=== PATIENT | female | born 1990 | race American Indian/Alaskan Native ===

== ENCOUNTER 2016-05-01 04:13 | Emergency (ER) | payer OTHER ==
[2016-05-01 04:26] VITALS: BP 124/87
[2016-05-01 05:45] LABS: Bilirubin,Urine NEG (Negative); Blood,Urine NEG (Negative); Ketones,Urine NEG (Negative); Leukocyte Esterase,Urine TR (Negative); Mucus,Urine FEW /HPF; Nitrite,Urine NEG (Negative); Protein,Urine <15 mg/dL mg/dL (Negative); Urobilinogen,Urine < 2.0 mg/dL (<2.0)
[2016-05-01 05:54] LABS: Alanine Aminotransferase 14 units/L (7-56); Albumin/Globulin Ratio 1.1 %; Alkaline Phosphatase 55 units/L (35-129); Bilirubin,Total 0.3 mg/dL (0.1-1.2); Blood Urea Nitrogen 12 mg/dL (7-17); Calcium 8.9 mg/dL (8.4-10.2); Carbon Dioxide 22 mmol/L (22-30); Chloride 99.5 mmol/L (98-107); Glucose 116 mg/dL (65-100); Lipase 29 units/L (13-60); Potassium 3.8 mmol/L (3.6-5.0); Sodium 136 mmol/L (137-145); Total Protein 7.6 g/dL (6.3-8.2)
[2016-05-01 05:55] LABS: Anion Gap 18 mmol/L
[2016-05-01 06:19] LABS: Mean Corpuscular HGB Conc 30 % (30-34); Mean Corpuscular Volume 79 fl (79-97); Platelet Count 257 K/mm3 (140-440); Red Blood Count 5.13 M/mm3 (3.65-5.03); Red Cell Distribution Width 17.9 % (13.2-15.2); White Blood Count 12.4 K/mm3 (4.5-11.0)
[2016-05-01 06:27] LABS: Hematocrit 40.5 % (30.3-42.9); Hemoglobin 12.1 gm/dl (10.1-14.3); Mean Corpuscular Hemoglobin 24 pg (28-32)
--- NOTE | 2016-05-01 19:09 | ED Elopement Review ---
ED Pt Elopement review - Results review Lab results: Laboratory Tests 05/01/16 05/01/16 05/01/16 05:03 05:03 05:03 WBC 12.4 H RBC 5.13 H Hgb 12.1 Hct 40.5 MCV 79 MCH 24 L MCHC 30 RDW 17.9 H Plt Count 257 Lymph % (Auto) [place] [employer] [place] % (Auto) [employer] Eos % (Auto) [place] [employer] Baso % (Auto) [place] [employer] Lymph # [place] [employer] [place] # [employer] Eos # [place] [employer] Baso # [place] [employer] Seg Neutrophils % [place] Seg Neutrophils # [place] [employer] Sodium 136 L Potassium 3.8 Chloride 99.5 Carbon Dioxide 22 Anion Gap 18 BUN 12 Creatinine 0.8 Estimated GFR > 60 BUN/Creatinine Ratio 15.00 Glucose 116 H Calcium 8.9 Total Bilirubin 0.3 AST 23 ALT 14 Alkaline Phosphatase 55 Total Protein 7.6 Albumin 4.0 Albumin/Globulin Ratio 1.1 Lipase 29 HCG, Qual Negative Urine Color Urine Turbidity Urine pH Ur Specific [place] Urine Protein Urine Glucose (UA) Urine Ketones Urine Blood Urine Nitrite Urine Bilirubin Urine Urobilinogen Ur Leukocyte Esterase Urine WBC (Auto) Urine RBC (Auto) U Epithel Cells (Auto) Urine Bacteria (Auto) Amorphous Crystals Urine Mucus 05/01/16 05:12 WBC RBC Hgb Hct MCV MCH MCHC RDW Plt Count Lymph % (Auto) [place] % (Auto) Eos % (Auto) Baso % (Auto) Lymph # [place] # Eos # Baso # Seg Neutrophils % Seg Neutrophils # Sodium Potassium Chloride Carbon Dioxide Anion Gap BUN Creatinine Estimated GFR BUN/Creatinine Ratio Glucose Calcium Total Bilirubin AST ALT Alkaline Phosphatase Total Protein Albumin Albumin/Globulin Ratio Lipase HCG, Qual Urine Color Yellow Urine Turbidity Turbid Urine pH 8.0 H Ur Specific [place] 1.018 Urine Protein <15 mg/dl Urine Glucose (UA) 50 Urine Ketones Neg Urine Blood Neg Urine Nitrite Neg Urine Bilirubin Neg Urine Urobilinogen < 2.0 Ur Leukocyte Esterase Tr Urine WBC (Auto) 0.0 Urine RBC (Auto) 6.0 U Epithel Cells (Auto) 13.0 Urine Bacteria (Auto) Not Reportable Amorphous Crystals 3+ Urine Mucus Few - Call Back decision Pt Call Back Decision: No action required
== END 2016-05-01 05:04 | disposition left against medical advice (07) ==
LOC: ED 04:13
DX: R10.9 Unspecified abdominal pain (principal); Z53.21 Procedure and treatment not carried out due to patient leaving prior to being seen by health care provider
CPT/HCPCS: 36415; 80053; 81001; 83690; 84703; 85025